=== PATIENT | male | born 1985 | race Caucasian/White ===

== ENCOUNTER 2017-05-06 21:05 | Emergency (ER) | payer OTHER ==
[~2017-05-06] VITALS: Ht 185.4 cm; Wt 68.2 kg
[2017-05-06 21:09] VITALS: BP 125/80
[2017-05-06] MEDS ORDERED: KEFLEX500 MG PO (23:47)
== END 2017-05-07 00:02 | disposition home or self-care (01) ==
LOC: EME 21:05 → EXP 21:05
PROC: 0HQFXZZ Repair Right Hand Skin, External Approach (ICD-10-PCS; principal; 2017-05-06)
DX: S61.210A Laceration without foreign body of right index finger without damage to nail, initial encounter (principal); W26.0XXA Contact with knife, initial encounter; F17.200 Nicotine dependence, unspecified, uncomplicated
CPT/HCPCS: 99281; 99283